=== PATIENT | male | born 1955 | race Caucasian/White ===

== ENCOUNTER 2018-03-23 05:20 | Day surgery (SDC) | payer BC ==
[~2018-03-23] VITALS: Ht 188 cm; Wt 113.4 kg
--- NOTE | ~2018-03-23 | OP ---
PATIENT NAME: PERLITA ALLISON MEDICAL RECORD: [id number] :57 LOCATION:D.[facility] ADMISSION DATE: SURGEON: HUNTER OGLESBY MD DATE OF OPERATION: 03/23/2018 PREOPERATIVE DIAGNOSES: 1. Right inguinal hernia. 2. Hypercholesterolemia. 3. Thyroid disease. 4. Tobacco dependence syndrome. POSTOPERATIVE DIAGNOSES: 1. Right inguinal hernia. 2. Hypercholesterolemia. 3. Thyroid disease. 4. Tobacco dependence syndrome. PROCEDURE: Right inguinal hernia repair with large PHS mesh. SURGEON: Hunter Oglesby MD REPORT OF PROCEDURE: The patient's right groin was prepped and draped in sterile fashion. An oblique incision was made above the inguinal ligament. Electrocautery was used to dissect through the subcutaneous tissue down to the external oblique fascia. This fascia was incised with a 15 blade and opened up to the external ring using electrocautery. The patient's ilioinguinal nerve was found and high ligated. We came around the spermatic cord and a Gauri was placed around it. The patient had a large direct hernia defect and a smaller indirect hernia defect. These were both freed up from the surrounding tissues. I was able to push these back into place and an opening was made in the inguinal floor. Through this opening, I was able to open the preperitoneal space of Retzius in all directions. A large PHS mesh was then inserted and sutured down on all 4 sides using multiple interrupted 0 Vicryls. The wound was then irrigated out with normal saline and care was taken to assure there was no sign of any active bleeding. At this point, the external oblique fascia was closed with running 2-0 Vicryl, Hazel's was closed with interrupted 3-0 Vicryls, and the skin was closed with running subcutaneous 5-0 Monocryl. A total of 10 mL of 0.25% Marcaine with epinephrine was infused into the surrounding tissues and the wounds were dressed appropriately. COMPLICATIONS: None. CONDITION: Stable. ANESTHESIA: General endotracheal and local. BLOOD LOSS: Minimal. TRANSINT:[id number] Voice Confirmation ID: [id number] DOCUMENT ID: [id number] OPERATIVE REPORT [id number] ALLISONPERLITA BUTLER HUNTER WOODWARD MD at 0804 CC: PERLITA FLORES [id number] DICTATION DATE: 03/23/18 0857 FLYING INSTRUCTOR: 03/23/18 1215 [facility] 03/23/18 [place] [id number] [place] [id number]
[~2018-03-23 05:20] MED LIST: CLARITIN 10 MG10 MG PO; OMEPRAZOLE20 M1 PO; PRAVACHOL40 MG PO; SYNTHROID25 MCG PO
[2018-03-23 06:17] LABS: BASOPHILS 0.3 % (0-2); HEMATOCRIT 45.4 % (42.0-54.0); HEMOGLOBIN 15.2 g/dL (13.5-17.5); IMMATURE GRANULOCYTES 0.2 % (0-5); LYMPHOCYTES 26.7 % (15-50); MCH 31.9 pg (26.0-34.0); MCHC 33.5 g/dL (31.0-37.0); MCV 95.2 fL (80.0-100.0); MEAN PLATELET VOLUME 10.9 fL (7.4-10.4); MONOCYTES 10.1 % (2-11); NEUTROPHILS 59.7 % (40-80); PLATELET COUNT 150 10x3/uL (130-400); RBC 4.77 10x6/uL (4.20-6.10); WBC 6.4 10x3/uL (4.8-10.8)
[2018-03-23 06:29] VITALS: BP 121/77; Ht 188 cm; Wt 113.4 kg
[2018-03-23 06:41] LABS: ANION GAP 6.8 mmol/L (8-16); CALCIUM 8.9 mg/dL (8.5-10.1); CARBON DIOXIDE 31.7 mmol/L (21.0-32.0); CREATININE - SERUM 1.4 mg/dL (0.6-1.3); POTASSIUM - SERUM 4.5 mmol/L (3.5-5.1)
[2018-03-23] MEDS ORDERED: HYDROCODONE-APA1 TAB PO (08:51)
== END 2018-03-23 12:30 | disposition home or self-care (01) ==
LOC: D.OPS 05:20 → D.PAN 08:00 → D.OPS 08:00
PROVIDERS: Surgery
DX: K40.90 Unilateral inguinal hernia, without obstruction or gangrene, not specified as recurrent (principal); E78.00 Pure hypercholesterolemia, unspecified; E66.9 Obesity, unspecified; F17.200 Nicotine dependence, unspecified, uncomplicated; E03.9 Hypothyroidism, unspecified; K21.9 Gastro-esophageal reflux disease without esophagitis; Z01.812 Encounter for preprocedural laboratory examination